=== PATIENT | female | born 1995 | race Caucasian/White ===

== ENCOUNTER 2020-01-28 11:42 | Emergency (ER) | payer OTHER ==
[~2020-01-28] VITALS: Ht 162.6 cm; Wt 59.0 kg
[2020-01-28 12:00] VITALS: BP 116/68; Ht 162.6 cm; Wt 59.0 kg
== END 2020-01-28 12:25 | disposition home or self-care (01) ==
LOC: ED 11:42
DX: B34.9 Viral infection, unspecified (principal); Z20.828 Contact with and (suspected) exposure to other viral communicable diseases
CPT/HCPCS: U0003-CS